=== PATIENT | female | born 1975 | race Caucasian/White ===

== ENCOUNTER 2021-09-26 02:30 | Emergency (ER) | payer BC, OTHER ==
--- NOTE | 2021-09-26 03:30 | EDM.PDOC ---
ED HPI GENERAL MEDICAL PROBLEM - General Chief Complaint: Respiratory Problem Stated Complaint: COVID+/SOB Time Seen by Provider: 09/26/21 03:03 Source of Information: Reports: Patient History Limitations: Reports: No Limitations - History of Present Illness INITIAL COMMENTS - FREE TEXT/NARRATIVE: Mrs. Price is a very pleasant 46-year-old woman who now presents the ED stating that she had developed rhinorrhea and a nonproductive cough. She had not had a fever. She tested positive for the SARS-CoV-2 virus on 09/19/2021, and was treated with an infusion of monoclonal antibodies on 09/22/2021. She states that no blood work or chest x-ray was performed prior to the infusion. She states that she developed dyspnea and a headache around 19:00 last night, 09/25/2021. She checked her oxygen saturation, finding it to be 83 to 88% on room air, while she was trying to sleep. She states that her SpO2 had been in the upper 90s all week. The patient states that she has been taking Advil on an as-needed basis, and that she took a rizatriptan 2 days ago. Here in the ED, the patient is found to be hemodynamically stable, afebrile, saturating 97% on room air. She appears to be comfortable, in no acute distress. The patient denies having a recent fever, chills, sore throat, ear pain, nasal or sinus congestion, chest pain, palpitations, nausea, vomiting, constipation, diarrhea, abdominal pain, urinary symptoms, recent weight gain or weight loss, recent bloody bowel movements or black bowel movements, recent joint aches, or rashes. The patient's PCP is MELLISSA Goins. She has not received a COVID vaccination, nor an influenza vaccination this season. Headache Pain Score (Numeric/FACES): 5 - Related Data Allergies Allergy/AdvReac Type Severity Reaction Status Date / Time No Known Allergies Allergy Verified 09/26/21 02:53 Home Meds: Home Meds Albuterol Sulfate [Albuterol Sulfate Hfa] 8.5 gm IH DAILY PRN 09/26/21 [History] Rizatriptan Benzoate [Rizatriptan] 10 mg PO DAILY PRN 09/26/21 [History] Past Medical History Respiratory History: Reports: Asthma (PFT-proven) Neurological History: Reports: Migraines - Infectious Disease History Infectious Disease History: Reports: Chicken Pox, Novel Coronavirus (dx'd 09/19/2021) - Past Surgical History HEENT Surgical History: Reports: Tonsillectomy GI Surgical History: Reports: Cholecystectomy Female Surgical History: Reports: Hysterectomy Musculoskeletal Surgical History: Reports: Other (See Below) Other Musculoskeletal Surgeries/Procedures:: R leg surgery Social & Family History - Tobacco Use Tobacco Use Status *Q: Never Tobacco User - Caffeine Use Caffeine Use: Reports: None - Alcohol Use Alcohol Use History: No - Recreational Drug Use Recreational Drug Use: No - Living Situation & Occupation Living situation: Reports: , with Spouse 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 ED EXAM, GENERAL - Physical Exam Exam: See Below Exam Limited By: No Limitations General Appearance: Alert, WD/WN, No Apparent Distress Eye Exam: Bilateral Eye: EOMI, Normal Inspection Ears: Normal External Exam, Hearing Grossly Normal Nose: Normal Inspection Throat/Mouth: Normal Inspection, Normal Lips, Normal Voice, No Airway Compromise Head: Atraumatic, Normocephalic Neck: Normal Inspection, Full Range of Motion Respiratory/Chest: No Respiratory Distress, Lungs Clear, Normal Breath Sounds, No Accessory Muscle Use. No: Decreased Breath Sounds, Crackles, Rhonchi, Wheezing, Stridor, Prolonged Expiration Cardiovascular: Normal Peripheral Pulses, Regular Rate, Rhythm, No Edema, No Gallop, No JVD, No Murmur, No Rub Peripheral Pulses: 3+: Radial (L), Radial (R) GI/Abdominal: Normal Bowel Sounds, Soft, Non-Tender, No Organomegaly, No Distention, No Abnormal Bruit, No Mass Back Exam: Normal Inspection, Full Range of Motion, NT Extremities: Normal Inspection, Normal Range of Motion, No Pedal Edema, Normal Capillary Refill Neurological: Alert, Oriented, Normal Cognition, No Motor/Sensory Deficits Psychiatric: Normal Affect Skin Exam: Warm, Dry, Intact, Normal Color, No Rash Course - Vital Signs Last Recorded V/S: Last Vital Signs Temp 37.0 C 09/26/21 02:45 Pulse 77 09/26/21 02:45 Resp 20 09/26/21 02:45 BP 119/87 09/26/21 02:45 Pulse Ox 97 09/26/21 02:45 - Re-Assessments/Exams Free Text/Narrative Re-Assessment/Exam: 09/26/21 03:25 The patient states that she has been checking her pulse oximeter several times a day, and that it was in the mid to upper 90% all week, until last night, when it was between 83 and 88%. Here in the ED, however, her SpO2 is 97%. I explained to the patient that her low oxygen saturation at home is most likely due to the inherent inadequacy of the device, and not an actually low oxygen saturation. At this point, she is likely out of the friend, and does not need to check her oxygen saturation. Departure - Departure Time of Disposition: 03:26 Disposition: Home, Self-Care 01 Condition: Good Clinical Impression: COVID-19 - Discharge Information *PRESCRIPTION DRUG MONITORING PROGRAM REVIEWED*: Not Applicable *COPY OF PRESCRIPTION DRUG MONITORING REPORT IN PATIENT YUDY: Not Applicable Instructions: COVID-19 Referrals: Lexy Gutierrez PA-C [Primary Care Provider] - Forms: ED Department Discharge Additional Instructions: You were seen in the emergency room for shortness of breath, a headache, and a low oxygen saturation on your home pulse oximeter, last night. In the ER, your oxygen saturation was found to be 97% on room air, which is normal. As discussed, the low oxygen saturation on your home device is most likely due to the inherent inadequacy of the device, not an actually low oxygen saturation. At this stage in your illness, you probably do not need to continue to monitor your oxygen saturation closely. If you do want to check your oxygen saturation, make sure that the pulse that the device thinks you have correlates with your actual pulse. If it is not correlating, the reading is not meaningful. If any other problems, please do not hesitate to return to the ER. Sepsis Event Note (ED) - Evaluation Sepsis Screening Result: No Definite Risk
== END 2021-09-26 03:40 | disposition home or self-care (01) ==
LOC: JD.ED 02:30
DX: U07.1 COVID-19 (principal); J45.909 Unspecified asthma, uncomplicated; Z79.899 Other long term (current) drug therapy
CPT/HCPCS: 99284

== ENCOUNTER 2024-12-05 19:32 | Emergency (ER) | payer OTHER, MEDICAID ==
[2024-12-05] MEDS: Acetaminophen 325 MG Tab PO ONE (21:29)
[2024-12-05] MEDS: Ketorolac 60 MG/2 ML SDV IM ONE (22:43)
== END 2024-12-05 22:30 | disposition home or self-care (01) ==
LOC: JD.ED 19:32
DX: J06.9 Acute upper respiratory infection, unspecified (principal); I10 Essential (primary) hypertension; E66.9 Obesity, unspecified; Z68.33 Body mass index [BMI] 33.0-33.9, adult
CPT/HCPCS: 36415; 71046; 86308; 87428; 87651; 99284; A9270